=== PATIENT | male | born 1965 | race African-American/Black ===

== ENCOUNTER 2020-07-06 11:17 | Emergency (ER) | payer OTHER ==
[~2020-07-06] VITALS: Ht 162.6 cm; Wt 95.3 kg
[2020-07-06 11:22] VITALS: BP 183/96
[2020-07-06] MEDS ORDERED: NAPROSYN500 MG PO (11:45)
[2020-07-06] MEDS ORDERED: FLEXERIL PO (11:45)
[2020-07-06] MEDS ORDERED: TYLENOL325 MG PO (11:45)
== END 2020-07-06 12:03 | disposition home or self-care (01) ==
LOC: ER 11:17
DX: S73.112A Iliofemoral ligament sprain of left hip, initial encounter (principal); S86.812A Strain of other muscle(s) and tendon(s) at lower leg level, left leg, initial encounter; M76.892 Other specified enthesopathies of left lower limb, excluding foot; F17.210 Nicotine dependence, cigarettes, uncomplicated; Z88.0 Allergy status to penicillin; X50.1XXA Overexertion from prolonged static or awkward postures, initial encounter; Y93.89 Activity, other specified; Y92.89 Other specified places as the place of occurrence of the external cause; Y99.8 Other external cause status